=== PATIENT | female | born 1950 | race Caucasian/White ===

== ENCOUNTER → 2016-05-07 | Day surgery (SDC) | payer OTHER, BC ==
[2016-05-06 10:37] VITALS: BMI 27.1
[~2016-05-07] MED LIST: ACETAMINOPHEN 325 MG TABLET (FP) PO PRN; HYDROmorphone HCL CARPU-JECT 1 MG/1 ML DISP.SYRIN IVPUSH STA; HYDROmorphone HCL CARPU-JECT 2 MG/1 ML DISP.SYRIN ONE; IBUPROFEN 800 MG/8 ML IJ IVPB PRN; LACTATED RINGERS SOLUTION 1,000 ML IV SCH; MIDAZOLAM HCL 2 MG/2 ML SINGLE DOSE VIAL ONE; ONDANSETRON 4 MG/2 ML VIAL IVPUSH PRN; ONDANSETRON 4 MG/2 ML VIAL ONE; PROPOFOL 20 ML ONE; ceFAZolin SODIUM 1 GM VIAL IVPB ONE; ceFAZolin SODIUM 1 GM VIAL ONE; morphine CARPU-JECT 4 MG/1 ML DISP.SYRIN ONE; oxyCODONE HCL 5 MG TABLET PO PRN
[2016-05-07] MEDS: morphine CARPU-JECT 2 MG/1 ML DISP.SYRIN IVPUSH PRN ×2 (10:34→10:44)
--- NOTE | 2016-05-07 11:04 | HP ---
Admitting History and Physical - Admission Chief Complaint: right lower ext varicose veins - Smoking History Smoking history: Never smoked Have you smoked in the past 12 months: No - Alcohol/Substance Use Hx Alcohol Use: Yes (OCCAS) Home Medications - Allergies Allergies/Adverse Reactions: Allergies Allergy/AdvReac Type Severity Reaction Status Date / Time hazelnut Allergy Swelling Verified 05/07/16 07:58 walnut Allergy Swelling Verified 05/07/16 07:58 lisinopril AdvReac Swelling Verified 05/07/16 07:58 - Home Medications Home Medications: Ambulatory Orders Aspirin [ASA -] 81 mg PO DAILY 10/28/15 Hydrochlorothiazide 50 mg PO DAILY 10/28/15 Klor-Con 20 meq PO DAILY 10/28/15 Simvastatin [Zocor -] 20 mg PO HS 10/28/15 Diltiazem Cd [Cardizem Cd -] 240 mg PO DAILY 05/06/16 Acetaminophen W/ Codeine #3 [Tylenol # 3 -] 1 tab PO Q6H #30 tablet MDD 4 Physical Examination Vital Signs: Vital Signs Temperature 98.4 F 05/07/16 10:25 Pulse Rate 67 05/07/16 10:45 Respiratory Rate 12 05/07/16 10:45 Blood Pressure 125/54 05/07/16 10:45 O2 Sat by Pulse Oximetry (%) 97 05/07/16 10:45 Constitutional: Yes: Well Nourished Eyes: Yes: WNL HENT: Yes: WNL Neck: Yes: WNL Cardiovascular: Yes: WNL Respiratory: Yes: WNL Gastrointestinal: Yes: WNL Labs: CBC, BMP 05/07/16 07:12 Assessment/Plan Right lower ext varicose veins 1. For phlebectomy today
--- NOTE | 2016-05-07 12:37 | OP ---
Operative Note - Note: Operative Date: 05/07/16 Pre-Operative Diagnosis: Right lower extremity varicose veins Operation: Right lower extremity stab phlebectomy -- 15 stab incisions Post-Operative Diagnosis: Same as Pre-op Surgeon: Christofer Mcrae Anesthesia: General Estimated Blood Loss (mls): 100 Operative Report Dictated: Yes
[2016-05-07 14:58] VITALS: BP 134/71; PULSE 68; TEMP 98
--- NOTE | 2016-05-08 13:22 | PATH ---
Surgical Pathology Report Patient Name: BENNY RAY [facility]. Rec. #: [id number] /Age/Gender: 1950 (Age: 65) / F Account: [id number] Location: [facility] SURGICAL Taken: 05/07/2016 Received: 05/07/2016 Reported: 05/08/2016 Physicians: Christofer Mcrae Specimen(s) Received VARICOSE VEINS RIGHT LOWER EXTREMITY Clinical History Right lower extremity varicose veins Final Diagnosis VARICOSE VEINS, RIGHT LOWER EXTREMITY, PHLEBECTOMY: DILATED BLOOD VESSELS WITH MEDIAL SCLEROSIS CONSISTENT WITH VARICOSE VEINS. Electronically Signed Messi Hernnadez M.D. Gross Description Received in formalin, labeled "varicose veins right lower extremity" is a 2.5 x 2.0 x 0.3 cm aggregate of multiple rojas, tortuous, focally dilated portions of vasculature, consistent with varicose veins. Shot Man sections are submitted in one cassette. /05/07/2016 saudi05/07/2016
== END | disposition home or self-care (01) ==
LOC: JASU-SURG 07:04
PROVIDERS: ATTEND Surgery Vascular Surgery
PROC: 06DY0ZZ Extraction of Lower Vein, Open Approach (ICD-10-PCS; principal; 2016-05-07 09:00)
DX: I83.91 Asymptomatic varicose veins of right lower extremity (principal)
CPT/HCPCS: 36415; 84132; 88304-TC; 94760